=== PATIENT | female | born 1945 | race Two or more races ===

== ENCOUNTER 2021-12-15 08:18 | Outpatient (CLI) | payer OTHER | END 2021-12-15 08:23 | disposition home or self-care (01) | LOC: RX STUDY 08:18 | PROVIDERS: ATTEND Internal Medicine Gastroenterology | DX: R10.13 Epigastric pain (principal) ==

== ENCOUNTER 2022-03-09 09:11 | Inpatient (IN) | payer OTHER ==
[~2022-03-09] VITALS: Ht 147.3 cm; Wt 57.6 kg
[2022-03-09] MEDS ORDERED: TOPROL XL100 M1 (11:53)
[2022-03-09] MEDS ORDERED: SIMVASTATIN40 MG (11:53)
[2022-03-09] MEDS ORDERED: LOSARTAN POTASSI1 GM (11:53)
[2022-03-09] MEDS ORDERED: XARELTO20 MG (11:53)
[2022-03-09] MEDS ORDERED: JANUMET 50-1,01 EACH (11:54)
[2022-03-09] MEDS ORDERED: PLAVIX75 MG PO (11:54)
[2022-03-29] MEDS ORDERED: DONEPEZIL HCL10 MG (10:59)
[2022-03-29] MEDS ORDERED: OXYBUTYNIN CHLO10 MG (11:00)
[2022-03-29] MEDS ORDERED: DULOXETINE HCL30 MG (11:00)
[2022-03-29] MEDS ORDERED: NORVASC2.5 MG (11:00)
[2022-03-29] MEDS ORDERED: FUROSEMIDE20 MG (11:00)
[2022-03-29] MEDS ORDERED: LYRICA50 MG (11:00)
[2022-03-29] MEDS ORDERED: GABAPENTIN300 M2 (11:01)
[2022-03-30] MEDS ORDERED: KETO10TA2 PO (09:00)
[2022-03-30] MEDS ORDERED: INTESTINEX680 M1 PO (09:01)
== END 2022-03-30 11:24 | disposition home or self-care (01) | DRG 748 ==
LOC: SURH 03-15 09:45 → O/R 03-29 06:50 → SURH 03-29 09:45 → SURG 03-29 12:35 → SURH 03-29 18:00 → SURG 03-30 11:24
PROVIDERS: ADMIT Surgery; ATTEND Surgery
PROC: 3E0T3BZ Introduction of Anesthetic Agent into Peripheral Nerves and Plexi, Percutaneous Approach (ICD-10-PCS; 2022-03-29)
PROC: 0JQC0ZZ Repair Pelvic Region Subcutaneous Tissue and Fascia, Open Approach (ICD-10-PCS; principal; 2022-03-29 18:00)
DX: N81.6 Rectocele (principal); Z20.822 Contact with and (suspected) exposure to COVID-19; R15.9 Full incontinence of feces; R39.15 Urgency of urination; K57.30 Diverticulosis of large intestine without perforation or abscess without bleeding

== ENCOUNTER → 2022-03-11 | Outpatient (CLI) | payer OTHER ==
[~2022-03-11] MED LIST: JANUMET 50-1,01 EACH; LOSARTAN POTASSI1 GM; PLAVIX75 MG PO; SIMVASTATIN40 MG; TOPROL XL100 M1; XARELTO20 MG
== END | disposition home or self-care (01) ==
LOC: TOM 07:41
PROVIDERS: ATTEND Surgery
DX: R15.9 Full incontinence of feces (principal); K57.30 Diverticulosis of large intestine without perforation or abscess without bleeding; R39.15 Urgency of urination; N81.6 Rectocele

== ENCOUNTER 2023-01-20 11:02 | Inpatient (IN) | payer OTHER ==
[~2023-01-20] VITALS: Ht 149.9 cm; Wt 49.9 kg
[~2023-01-20 11:02] MED LIST changes: +DONEPEZIL HCL10 MG; +DULOXETINE HCL30 MG; +FUROSEMIDE20 MG; +GABAPENTIN300 M2; +INTESTINEX680 M1 PO; +KETO10TA2 PO; +LYRICA50 MG; +NORVASC2.5 MG; +OXYBUTYNIN CHLO10 MG
[2023-01-20] MEDS ORDERED: FOLIC ACID PO (14:40)
[2023-01-26] MEDS ORDERED: FAMOTIDINE40 MG (10:22)
[2023-01-26] MEDS ORDERED: DONEPEZIL HCL10 MG (10:22)
[2023-01-26] MEDS ORDERED: OXYBUTYNIN CHLO10 MG (10:32)
[2023-01-26] MEDS ORDERED: LOSARTAN POTAS100 MG (10:33)
[2023-01-26] MEDS ORDERED: FOLIC ACID1 MG (10:33)
[2023-01-29] MEDS ORDERED: ACETAMINOPHEN500 M2 PO (13:33)
[2023-01-29] MEDS ORDERED: NEURONTIN300 MG PO (13:34)
[2023-01-29] MEDS ORDERED: INTESTINEX680 M1 PO (13:35)
[2023-01-29] MEDS ORDERED: LEVSIN/SL0.125 MG SL (13:35)
[2023-01-29] MEDS ORDERED: MIRALAX17 GM PO (13:35)
== END 2023-01-29 16:16 | disposition home or self-care (01) | DRG 330 ==
LOC: SURH 01-26 08:26 → O/R 01-26 08:26 → SURH 01-26 12:15
PROVIDERS: Internal Medicine Geriatric Medicine; ADMIT Surgery; ATTEND Surgery
PROC: 0DTN4ZZ Resection of Sigmoid Colon, Percutaneous Endoscopic Approach (ICD-10-PCS; 2023-01-26)
PROC: 0UQ Female Reproductive System, Repair (ICD-10-PCS; 2023-01-26)
PROC: 0DNW4ZZ Release Peritoneum, Percutaneous Endoscopic Approach (ICD-10-PCS; 2023-01-26)
PROC: 0DJD8ZZ Inspection of Lower Intestinal Tract, Via Natural or Artificial Opening Endoscopic (ICD-10-PCS; 2023-01-26)
PROC: 0DQP4ZZ Repair Rectum, Percutaneous Endoscopic Approach (ICD-10-PCS; principal; 2023-01-26 16:15)
DX: K62.3 Rectal prolapse (principal); D68.59 Other primary thrombophilia; K56.1 Intussusception; N81.5 Vaginal enterocele; R15.9 Full incontinence of feces; K66.0 Peritoneal adhesions (postprocedural) (postinfection); K62.89 Other specified diseases of anus and rectum; K57.30 Diverticulosis of large intestine without perforation or abscess without bleeding; R39.15 Urgency of urination; D64.89 Other specified anemias; E83.42 Hypomagnesemia; E83.39 Other disorders of phosphorus metabolism; E11.9 Type 2 diabetes mellitus without complications; I11.9 Hypertensive heart disease without heart failure; Z79.4 Long term (current) use of insulin